=== PATIENT | male | born 1985 | race Caucasian/White ===

== ENCOUNTER 2017-01-24 16:04 | Emergency (ER) | payer MEDICARE, MEDICAID, OTHER ==
[~2017-01-24] VITALS: Ht 203.2 cm; Wt 113.4 kg
--- NOTE | 2017-01-24 16:20 | NUR ---
PT IN ROOM 3, COOPERATIVE. AWAITING FOR MD ALLEN.
[2017-01-24 16:55] LABS: *BILIRUBIN,URIN NEGATIVE (NEGATIVE); *BLOOD, URINE Trace-lysed (NEGATIVE); *COLOR,URINE YELLOW (YELLOW); *KETONES,URINE NEGATIVE (NEGATIVE); *PROTEIN,URINE 2+ (NEGATIVE); *UROBILINOGEN,URINE 0.2 E.U./dl (NORMAL); LEUKOCYTE ESTERASE ,URINE NEGATIVE (NEGATIVE); NITRITE, URINE NEGATIVE (NEGATIVE); PH,URINE 5.5 (5.0-8.0); UGLUCOSE NEGATIVE (NEGATIVE)
[2017-01-24 16:56] LABS: BASOPHILS # (AUTO) 0.1 K/uL (0.0-8.0); BASOPHILS % (AUTO) 0.6 % (0.0-2.0); EOSINOPHILS % (AUTO) 0.3 % (0.0-7.0); HEMATOCRIT 50.5 % (40-50); HEMOGLOBIN 16.4 G/DL (14.0-18.0); LYMPHOCYTES # (AUTO) 1.7 K/UL (0.8-4.8); MEAN CORPUSCULAR HEMOGLOBIN 26.1 UUG (27.0-31.0); MEAN CORPUSCULAR HGB CONC 33 g/dL (32.0-37.0); MEAN CORPUSCULAR VOLUME 80.3 FL (82.0-92.0); MONOCYTES # (AUTO) 0.8 K/UL (0.1-1.30); NEUTROPHILS # (AUTO) 8.2 K/UL (1.8-8.9); NEUTROPHILS % (AUTO) 76.1 % (38.5-71.5); PLATELET COUNT (AUTO) 300 K/UL (150-450); WHITE BLOOD COUNT (AUTO) 10.8 K/UL (4.0-11.2)
[2017-01-24 17:01] LABS: CARBON DIOXIDE 26 mmol/L (21-32); CHLORIDE 105 mmol/L (98-107); CREATININE 1.3 mg/dL (0.6-1.3); GLUCOSE 93 mg/dL (74-106); POTASSIUM 3.6 mmol/L (3.5-5.1); UREA NITROGEN, BLOOD 20 mg/dL (7-18)
[2017-01-24 17:07] LABS: ALANINE AMINOTRANSFERASE 45 U/L (16-63); ALKALINE PHOSPHATASE 55 U/L (50-136); ASPARTATE AMINOTRANSFERASE 28 U/L (15-37); BILIRUBIN,DIRECT 0.1 mg/dL (0.0-0.2); BILIRUBIN,TOTAL 0.5 mg/dL (0.2-1.0); TOTAL PROTEIN, SERUM 8.2 g/dL (6.4-8.2)
[2017-01-24 17:08] LABS: ETHANOL 40 MG/DL (0-0)
[2017-01-24 17:09] LABS: ACETAMINOPHEN < 2.0 ug/mL (10-30)
[2017-01-24 17:10] LABS: *CLARITY,URINE HAZY (CLEAR)
[2017-01-24 17:11] LABS: *AMPHETAMINE, URINE POSITIVE (NEGATIVE); *BARBITURATE, URINE NEGATIVE (NEGATIVE); *CANNABINOID, URINE NEGATIVE (NEGATIVE); *COCCAINE, URINE NEGATIVE (NEGATIVE); *OPIATE, URINE NEGATIVE (NEGATIVE); *PHENCYCLIDINE SCREEN,URINE NEGATIVE (NEGATIVE)
[2017-01-24 17:16] LABS: MUCUS,URINE MANY /LPF (0-FEW); URINE AMORPHOUS URATE MODERATE /HPF; WBC,URINE 0-3 /HPF (0-3)
[2017-01-24 17:20] LABS: BAND % (MANUAL) 3 % (0-10); NEUTROPHILS % (MANUAL) 76 % (42-75)
[2017-01-24 17:21] LABS: LYMPHOCYTES % (MANUAL) 15 % (20-40); MONOCYTES % (MANUAL) 6 % (2-10)
[2017-01-24] MEDS ORDERED: SERT100T PO (18:02)
[2017-01-24] MEDS ORDERED: RISP1TAB27 PO (18:02)
[2017-01-24] MEDS ORDERED: BENZ0.5T3 PO (18:02)
[2017-01-24] MEDS ORDERED: DIVA250T PO (18:02)
[2017-01-24] MEDS ORDERED: ABILIFY IM (18:02)
[2017-01-24] MEDS ORDERED: DIVA500T7 PO (18:02)
--- NOTE | 2017-01-24 18:44 | NUR ---
PT IS MEDICALLY CLEARED, [facility] CALLED AND STATED HE WOULD ARRIVE FOR EVAL. PT IN ROOM WITH MON[facility], NO DISTRESS.
--- NOTE | 2017-01-24 19:05 | NUR ---
Luis M Tovar at bedside for evaluation.
--- NOTE | 2017-01-24 19:38 | NUR ---
Patient discharged to home in stable conditon. Written and verbal after care instructions given. Patient verbalizes understanding of instructions.
[2017-01-24] MEDS ORDERED: LORAZEPAM 0.5 MG TABLET PO ONE (19:45)
[2017-01-24] MEDS ORDERED: LORAZEPAM 1 MG TABLET ONE (19:47)
== END 2017-01-24 19:39 | disposition home or self-care (01) ==
LOC: EDBD 16:05 → ER 16:05
DX: F20.9 Schizophrenia, unspecified (principal); F15.10 Other stimulant abuse, uncomplicated; F31.9 Bipolar disorder, unspecified
CPT/HCPCS: 36415; 70030-TC; 80307; 85025; 93005; A4663; G0480; G0480-TC